=== PATIENT | female | born 1970 | race Caucasian/White ===

== ENCOUNTER 2017-11-03 23:03 | Emergency (ER) | payer OTHER ==
[2017-11-03] MEDS ORDERED: HYDROCOD/APAP 5/325 PREPACK#6 BTL TAKEHOME ONE (23:17)
--- NOTE | 2017-11-03 23:17 | EDPHY ---
H & P Time Seen by Provider: 11/03/17 23:06 HPI/ROS: CC: Left wrist pain. Fell. Hit head HPI:Previously healthy, medically stable 47-year-old female took a trip and fall while walking in heels and landed on her left wrist outstretched. This occurred approximately 1 hr ago. As she rolled after hitting the ground she did smacked the left side of her parietal scalp but was not sustaining any loss of consciousness, nor amnesia, no diplopia, nor neck pain, nor loss of consciousness. As to the left wrist. It bothers her on both sides of the radius and ulna as well as over the carpal row particularly at the base of the radius. Fortunately , in around about sense that she is right-handed. She notes she had 1 drink of red wine at 7:00 p.m.. At 1 hr prior to admission she did take 600 mg of ibuprofen with minimal relief. She reports that the pain is moderately severe to severe. In particular, going up the entire arm. Furthermore there is no numbness or tingling paresthesias loss sensation. Pt queried and denies: prior hx of substance abuse, family history of substance abuse, or current or prior psychiatric history. ROS: Constitutional - feeling well before the fall Head - see above. She reports no neck pain and as requested moves her head in all cardinal directions pitting at the neck without difficulty Eyes - no diplopia, blurred vision. ENT - no earache, no fluid from ear. No fluid from nose. No facial injury Neck: no pain or decreased ROM Thorax did not injury to chest or ribs or spine, no shortness of breath Abdominal - denies any abdomen, or back injury. No nausea. Musculoskeletal - no joint or muscle pain. Integument - no lacerations Neurological - no headache, numbness, tingling, or paresthesias. No focal motor weakness. No amnesia or LOC. No fluid from ear or nose 10 point ROS otherwise negative Physical Exam: Constitutional: Well-nourished, well-developed, no acute distress. Mild odor of alcohol on breath. Speech is clear and enunciate did well. She looks uncomfortable Head: No cephalohematoma. No battles sign or racoon eyes. Neck: Nontender without step off, with full active range of motion without pain Eyes: Pupils equal and reactive. ENT: Ears are without hemotympanum. Mouth exam, atraumatic. Chest: No signs of splinting respirations. Back: Moves well Musculoskeletal: Moves all extremities without difficulty, except for that of the left wrist. She is able to flex and extend left double without difficulty. However the there is mild to moderate amount of soft tissue swelling present left wrist with particular notable swelling at the end of the radius over the carpal row on the dorsum of the left wrist. This is particularly tender to touch. No ecchymosis. No deformities. Skin: No observed abrasions or lacerations. Skin is warm and dry. Normal sensation. Strength testing can not be performed due to pain. Neuro: Alert and oriented with a GCS of 15. No acute distress. No headache. Psych: Normal mood and affect. Constitutional: Initial Vital Signs Temperature (C) 36.6 C 11/03/17 23:10 Heart Rate 86 11/03/17 23:10 Respiratory Rate 16 11/03/17 23:10 Blood Pressure 145/92 H 11/03/17 23:10 O2 Sat (%) 96 11/03/17 23:10 O2 Delivery Mode Room Air Allergies/Adverse Reactions: No Known Allergies Allergy (Unverified 09/10/10 14:27) Home Medications: Medication Instructions Recorded CALCIUM CARBONATE/VITAMIN D3 1 each PO 02/12/13 [CALCIUM + D 600 MG TABLET] Ferrous Sulfate [Iron] 325 mg PO 02/12/13 Folic Acid 0.8 mg PO 02/12/13 L.acidoph/L.rhamn/B.bif/B.long 1 each PO 02/12/13 [Probiotic Acidophilus Biobeads] [place]-3 Fatty Acids/Fish Oil 1 each PO 02/12/13 [[place] 3 1,000 mg Softgel] Vit27&Calcium/Iron/FA 1 each PO DAILY 02/12/13 [ Rx 1 Tablet (RX)] Hydrocodone/APAP 5/325 [[place] 1 - 2 tab PO Q6H PRN #15 tab 11/03/17 5/325 (*)] Medical Decision Making - Diagnostics Imaging Results: My Plain Film Review: Plain film of [left wrist ] [3 ] view series. Interpreted by me contemporaneously.. There is a displaced comminuted intra-articular fracture of the distal radius as well as an ulnar styloid fracture. This is moderately displaced. ED Course/Re-evaluation: Upon initial evaluation we discussed pain management: she requested a tablet of Vicodin as I had offered. After I reviewed and interpreted the x-rays, I discussed the case with Dr. Sierra. He concurred with the plan for splinting, elevation, pain management, and referral to the office tomorrow. Splint application of the left wrist by tech, under my supervision. After application, area examined as well as splint examined , by me. Good alignment. Neurovascular status intact. No nexus criteria requiring cervical spine imaging. No Duchesne rules or or leans criteria for CT scan of the brain. This was reviewed with the patient. Also, we discussed brain rest. I discussed with the patient pain management and the risks of narcotic use and addiction. However, the fracture merits management. Risk factors for substance abuse very low. She has been warned. Differential Diagnosis: The differential diagnosis includes but is not limited to: Fracture, Sprain, Strain, Dislocation, Nerve injury, Contusion Differential Includes but is not limited to: Concussion, head injury, subdural hematoma, epidural hematoma, intraparenchymal hemorrhage, subarachnoid hemorrhage. - Data Points Medications Given: Discontinued Medications Hydrocodone Bitart/Acetaminophen ([place] 5/325mg Prepack#6) 1 btl TAKEHOME EDNOW ONE Stop: 11/03/17 23:18 Last Admin: 11/03/17 23:28 Dose: 1 btl Departure - Departure Disposition: Home, Routine, Self-Care Clinical Impression: Head injury due to trauma Qualifiers: Encounter type: initial encounter Qualified Code(s): S09.90XA - Unspecified injury of head, initial encounter Wrist fracture, left Qualifiers: Encounter type: initial encounter Fracture type: closed Qualified Code(s): S62.102A - Fracture of unspecified carpal bone, left wrist, initial encounter for closed fracture Condition: Good Instructions: Hydrocodone/Acetaminophen (By mouth), Wrist Fracture in Adults ( ED), Head Injury (ED) Referrals: America Sierra MD [Medical Doctor] - 1 day without fail Prescriptions: Hydrocodone/APAP 5/325 [[place] 5/325 (*)] 1 - 2 tab PO Q6H PRN #15 tab PRN Reason: moderate pain
[2017-11-04 00:25] VITALS: BP 126/86
== END 2017-11-04 00:24 | disposition home or self-care (01) ==
LOC: CED 23:03
PROC: 2W3DX1Z Immobilization of Left Lower Arm using Splint (ICD-10-PCS; principal; 2017-11-03)
DX: S52.572A Other intraarticular fracture of lower end of left radius, initial encounter for closed fracture (principal); S52.612A Displaced fracture of left ulna styloid process, initial encounter for closed fracture; S09.90XA Unspecified injury of head, initial encounter; W01.198A Fall on same level from slipping, tripping and stumbling with subsequent striking against other object, initial encounter; Y99.8 Other external cause status; Y93.01 Activity, walking, marching and hiking
CPT/HCPCS: 73110-PO